=== PATIENT | female | born 1980 | race African-American/Black ===

== ENCOUNTER 2016-03-24 20:40 | Emergency (ER) | payer MEDICAID ==
[2015-09-19 11:24] VITALS: BMI 47.5
[~2016-03-24 20:40] MED LIST: COZAAR50 MG PO; K-DUR20 MEQ PO; LASIX40 MG PO; NORVASC10 MG PO; PROZAC10 MG PO; TRAZODONE HCL50 MG PO
[2016-03-24 22:25] LABS: APPEARANCE CLOUDY (CLEAR); BILIRUBIN NEGATIVE (NEGATIVE); COLOR YELLOW (YELLOW); GLUCOSE NEGATIVE (NEGATIVE); KETONE NEGATIVE (NEGATIVE); LEUKOCYTE ESTERASE 1+ (NEGATIVE); NITRITE NEGATIVE (NEGATIVE); PROTEIN NEGATIVE (NEGATIVE); UROBILINOGEN NORMAL (NORMAL)
[2016-03-24 22:31] LABS: BACTERIA MODERATE /hpf (NONE SEEN); EPITHELIAL CELLS 0-5 /hpf (0-5); MUCUS <1+ /lpf (NONE SEEN); RED CELLS - URINE 0-5 /hpf (0-5); WHITE CELLS - URINE 0-5 /hpf (0-5)
== END 2016-03-24 23:15 | disposition home or self-care (01) ==
LOC: D.ER 20:40
PROVIDERS: Nurse Practitioner Acute Care
DX: R51 Headache (principal); I10 Essential (primary) hypertension; F41.9 Anxiety disorder, unspecified; J45.909 Unspecified asthma, uncomplicated; I50.9 Heart failure, unspecified; F32.9 Major depressive disorder, single episode, unspecified